=== PATIENT | female | born 1980 | race Caucasian/White ===

== ENCOUNTER 2022-07-15 15:14 | Outpatient (CLI) | payer OTHER, SELFPAY ==
[2022-07-15 12:38] LABS: Albumin* 4.3 g/dL (3.3-5.0)
[2022-07-15 12:39] LABS: Chloride* 105 mmol/L (96-114); Potassium* 4.6 mmol/L (3.6-5.1); Sodium* 139 mmol/L (135-149)
[2022-07-15 12:41] LABS: Aspartate Amino Transferase* 23 U/L (12-35); Bilirubin Total* 0.5 mg/dL (0.1-1.5); Carbon Dioxide* 27 mmol/L (20-32); Cholesterol* 181 mg/dL (90-199); Creatinine* 0.9 mg/dL (0.5-1.5); Estimated Glomerular Filt Rate 83 ml/min; Total Protein* 7.5 g/dL (6.0-8.3)
[2022-07-15 12:42] LABS: Alanine Aminotransferase* 40 U/L (4-35); Alkaline Phosphatase* 100 U/L (40-150); Blood Urea Nitrogen* 14 mg/dL (5-24); Calcium* 9.3 mg/dL (8.4-10.6); Glucose* 90 mg/dL (60-115); HDL Cholesterol* 50 mg/dL (>=50); LDL Cholesterol Calculated 119 mg/dL (<100); Triglycerides* 60 mg/dL (40-149)
[2022-07-15 12:45] LABS: Creatinine Urine 147.8 mg/dL; Microalbumin Creatinine Ratio 0 mg/g (0-30); Microalbumin Urine < 1 mg/dL
[2022-07-15 13:32] LABS: Vitamin B12* 467 pg/mL (243-894)
[2022-07-19 13:55] LABS: FACV Specimen Whole Blood; Factor V Leiden (F5) Mutation Heterozygous
== END 2022-07-15 15:15 | disposition home or self-care (01) ==
PROVIDERS: PCP Family Medicine; Visit Provider Family Medicine
DX: D68.51 Activated protein C resistance (principal); E66.01 Morbid (severe) obesity due to excess calories; F33.1 Major depressive disorder, recurrent, moderate; N93.9 Abnormal uterine and vaginal bleeding, unspecified; R20.2 Paresthesia of skin; R53.83 Other fatigue
CPT/HCPCS: 80053; 80061; 81241; 82043; 82570; 82607; 84443

== ENCOUNTER 2022-08-16 09:09 | Outpatient (CLI) | payer OTHER, SELFPAY ==
--- NOTE | 2022-08-16 09:15 | CRLHL7_ITS ---
For Patients: As a result of the Century Cures Act, medical imaging exams and procedure reports are released immediately into your electronic medical record. You may view this report before your referring provider. If you have questions, please contact your health care provider. INDICATION: DYSMENORRHEA AND MENORRHAGIA, ?POLYPS COMPARISON: none TECHNIQUE: 2D dai scale and color Doppler images were acquired of the pelvis using a transabdominal and transvaginal approach. FINDINGS: Sonographic images demonstrate a normal size and smooth outer contour of the uterus. Uterus measures 9.1 cm in length by 4.7 cm in AP diameter by 5.0 cm in transverse dimension. The myometrium has a normal uniform echotexture. The endometrial lining measures 12 mm in composite thickness. The right ovary measures 2.0 x 1.2 x 1.4 cm in size and the left ovary measures 2.8 x 1.4 x 2.0 cm. Small collapsing cyst left ovary measuring 1.3 cm. The ovaries demonstrate normal arterial and venous blood flow on color Doppler analysis. There are no suspicious fluid collections within the cul-de-sac. IMPRESSION: Endometrium measures 12 millimeters. No endometrial fluid or polyp on today`s exam. No uterine fibroid. Dictated by Chiki Floyd MD @ 08/16/2022 12:25:12 PM (Electronically Signed)
== END 2022-08-16 09:10 | disposition home or self-care (01) ==
PROVIDERS: PCP Family Medicine; Visit Provider Obstetrics & Gynecology
DX: N94.6 Dysmenorrhea, unspecified (principal); N92.0 Excessive and frequent menstruation with regular cycle; R93.89 Abnormal findings on diagnostic imaging of other specified body structures
CPT/HCPCS: 76830; 76856

== ENCOUNTER 2023-02-08 16:44 | Outpatient (CLI) | payer OTHER, SELFPAY ==
--- NOTE | 2023-02-08 17:00 | CRLHL7_ITS ---
For Patients: As a result of the Cures Act, medical imaging exams and procedure reports are released immediately into your electronic medical record. You may view this report before your referring provider. If you have questions, please contact your health care provider. INDICATION: Pulsatile tinnitus. COMPARISON: Correlation is made with an MR angiogram of the [place] [facility] [place] January 05, 2023. TECHNIQUE: The carotid circulations and the vertebral arteries in the neck were examined with dai-scale ultrasound, color-flow and Doppler spectral analysis. Degrees of stenosis were determined using SRU 2002 Consensus Panel Criteria. FINDINGS: Sonographic images demonstrate no evidence of atherosclerotic plaque formation or suspicious soft tissue mass. There was antegrade blood flow demonstrated within the vertebral arteries and the subclavian arteries demonstrate a normal triphasic waveform. The spectral Doppler tracings of the common carotid, internal and external carotid arteries demonstrate no abnormal turbulence or spectral broadening. There was no significant elevation of peak systolic blood flow which would indicate a hemodynamically significant stenosis by NASCET criteria. The ICA/CCA peak systolic velocity ratio measures 0.9 on the right and 0.9 on the left. IMPRESSION: Normal carotid ultrasound. Dictated by Negrito Turner MD @ 02/09/2023 9:06:18 AM (Electronically Signed)
== END 2023-02-08 16:45 | disposition home or self-care (01) ==
LOC: US 16:45
PROVIDERS: PCP Family Medicine; Visit Provider Otolaryngology
DX: H93.A9 Pulsatile tinnitus, unspecified ear (principal)
CPT/HCPCS: 93880

== ENCOUNTER 2024-07-16 09:27 | Outpatient (CLI) | payer BC, SELFPAY | END 2024-07-16 09:28 | disposition home or self-care (01) | LOC: NFLDREF 07-18 09:34 | PROVIDERS: PCP Physician Assistant Medical; Visit Provider Physician Assistant Medical | DX: N94.6 Dysmenorrhea, unspecified (principal); E66.01 Morbid (severe) obesity due to excess calories; D68.51 Activated protein C resistance; R79.89 Other specified abnormal findings of blood chemistry; E55.9 Vitamin D deficiency, unspecified; N92.0 Excessive and frequent menstruation with regular cycle | CPT/HCPCS: 80053; 80061; 82306; 82607; 84443 ==

== ENCOUNTER 2025-05-26 08:51 | Outpatient (CLI) | payer BC, SELFPAY | END 2025-05-26 08:52 | disposition home or self-care (01) | PROVIDERS: PCP Physician Assistant Medical; Visit Provider Physician Assistant Medical | DX: Z13.9 Encounter for screening, unspecified (principal); R00.2 Palpitations; E55.9 Vitamin D deficiency, unspecified; R53.83 Other fatigue; R79.89 Other specified abnormal findings of blood chemistry | CPT/HCPCS: 80053; 80061; 82306; 82607; 82728; 84443 ==

== ENCOUNTER 2025-06-04 08:32 | Outpatient (CLI) | payer BC, SELFPAY | END 2025-06-04 08:33 | disposition home or self-care (01) | PROVIDERS: PCP Physician Assistant Medical; Visit Provider Physician Assistant Medical | DX: R00.2 Palpitations (principal); I34.0 Nonrheumatic mitral (valve) insufficiency; I07.1 Rheumatic tricuspid insufficiency | CPT/HCPCS: 93306 ==